=== PATIENT | male | born 1950 | race Caucasian/White ===

== ENCOUNTER 2016-09-17 05:25 | Day surgery (SDC) | payer MEDICARE, OTHER ==
[2016-09-11 11:51] LABS: HEMATOCRIT 40.1 % (40.0-51.0); HEMOGLOBIN 12.7 g/dL (13.6-17.8)
[2016-09-11 12:04] LABS: A/G RATIO 1.1 (0.7-1.9); ALBUMIN 3.5 G/DL (3.5-5.0); ALKALINE PHOSPHATASE 53 U/L (45-117); BUN (BLOOD UREA NITROGEN) 16 MG/DL (6-23); CALCIUM, SERUM 9.8 MG/DL (8.5-10.4); CHLORIDE, SERUM 108 MMOL/L (96-112); CO2 (CARBON DIOXIDE) 27 MMOL/L (24-34); CREATININE 1.29 MG/DL (0.70-1.30); GFR AFRICAN AMERICAN 67 ML/MIN (>=60); GFR NON AFRICAN AMERICAN 57 ML/MIN (>=60); GLOBULIN 3.1 G/DL (2.5-4.1); GLUCOSE, SERUM 108 MG/DL (60-99); POTASSIUM, SERUM 3.9 MMOL/L (3.5-5.3); SGOT(AST) 27 U/L (5-40); SGPT(ALT) 44 U/L (5-65); SODIUM, SERUM 142 MMOL/L (135-148); TOTAL BILIRUBIN 0.7 MG/DL (0-1.2); TOTAL PROTEIN 6.6 G/DL (6.0-8.5)
--- NOTE | ~2016-09-17 | OP ---
Record Of Operation [facility] [address] [place]. [address] NAME: KAYLEN PADILLA : 50 STATUS : [facility]#: [id number] AGE: 66 ADM/REG DATE : 09/17/16 MR#: [id number] REPORT SERV DATE: 09/17/16 DICTATED BY: CHRISTOPHE MATTHEW DATE: 09/17/16 REPORT STATUS : Draft TRANSCRIBED BY: MODL DATE: 09/17/16 DATE OF PROCEDURE: 09/17/2016 PREOPERATIVE DIAGNOSIS: Primary hyperparathyroidism. POSTOPERATIVE DIAGNOSIS: Primary hyperparathyroidism. PROCEDURE: Bilateral cervical exploration and resection of left superior parathyroid adenoma. SURGEON: Christophe Matthew M.D. RESIDENT SURGEON: Jj Barney M.D. ANESTHESIA: General. ESTIMATED BLOOD LOSS: 20 mL. DETAILS OF PROCEDURE: The patient arrived in the operating suite and placed on the table in supine position. General anesthesia obtained via an endotracheal tube. The patient appropriately positioned. The neck and upper chest were prepped and draped in a sterile manner. A cervical collar incision was performed. Subplatysmal flaps elevated with blunt dissection and cautery. Strap muscles were split in the midline. A plane of dissection created between the left thyroid lobe and overlying strap muscles. The recurrent laryngeal nerve was identified as the nodular left lobe, was rotated anteromedially and just posterior to the nerve along the midsection of the left thyroid lobe, a large parathyroid was identified, mobilized, blood supply divided between clips. The gland was bisected and clearly represented parathyroid tissue. It was sent for permanent histology. The inferior pole of the left lobe, small normal-appearing parathyroid was identified and left undisturbed. Attention was turned to the tina, intraoperative parathyroid hormone measurements were drawn 10 and 15 minutes post excision of the left superior gland. A very large nodular right lobe was mobilized anteromedially. The middle thyroid vein divided between clips. The inferior pole of the thyroid what appeared to be a normal gland was identified with a small fatty lemus and posterior to the midportion of the gland what appeared to be a normal superior gland was identified as well. Surgicel was placed and cautery used for hemostasis. Once the PTH values were returned including preincision PTH value of 126 pg/mL and a 10-minute postexcision PTH of 20 pg/mL, procedure was concluded. The strap muscles were approximated with 3-0 Vicryl, platysma with 4-0 Vicryl. Skin closed with subcuticular 5-0 Monocryl. Sterile dressing was applied. The patient was awakened and extubated and taken to PACU. /CHRISTY Christophe Matthew, Record Of [address] [address] NAME: KAYLEN PADILLA : 50 STATUS : [facility] PAT#: [id number] AGE: 66 ADM/REG DATE : 09/17/16 MR#: [id number] REPORT SERV DATE: 09/17/16 DICTATED BY: CHRISTOPHE MATTHEW DATE: 09/17/16 REPORT STATUS : Draft TRANSCRIBED BY: CHRISTY DATE: 09/17/16 Francine / [id number] CC: Francine Nobles Jr., M.D.
[~2016-09-17 05:25] MED LIST: ALLEGRA180 PO; ASAB PO; CENTRUM PO; COQ10100 MG PO; MAXALT10 MG PO; NEXIUM20 M1 PO; NORCO1 TAB PO; PRAVAC PO; PREV15 PO; RAPAFLO4 MG PO
[2016-09-17 07:33] LABS: PTH (INTRAOPERATIVE) 126.3 PG/ML (10.0-65.0)
[2016-09-17 08:22] LABS: PTH (INTRAOPERATIVE) 20.3 PG/ML (10.0-65.0); PTH TAT 0 Hrs 20 Mins
[2016-09-17 08:27] LABS: PTH (INTRAOPERATIVE) 17.7 PG/ML (10.0-65.0); PTH TAT 0 Hrs 20 Mins
== END 2016-09-17 11:41 | disposition home or self-care (01) ==
LOC: SDC 05:25
PROVIDERS: Specialist
PROC: 0GTM0ZZ Resection of Left Superior Parathyroid Gland, Open Approach (ICD-10-PCS; principal; 2016-09-17 06:45)
DX: E21.3 Hyperparathyroidism, unspecified (principal); K21.9 Gastro-esophageal reflux disease without esophagitis; E78.00 Pure hypercholesterolemia, unspecified; G43.909 Migraine, unspecified, not intractable, without status migrainosus; M19.90 Unspecified osteoarthritis, unspecified site; G47.33 Obstructive sleep apnea (adult) (pediatric); N18.9 Chronic kidney disease, unspecified; K44.9 Diaphragmatic hernia without obstruction or gangrene; Z99.81 Dependence on supplemental oxygen; Z87.442 Personal history of urinary calculi
CPT/HCPCS: 80053; 83970; 85014; 85018; 88305; 93005; A9270-GY; C1769; J2250; J2270; J2405; J2710; J3010